=== PATIENT | male | born 1960 | race African-American/Black ===

== ENCOUNTER 2023-07-14 18:02 | Emergency (ER) | payer SELFPAY | END 2023-07-14 19:25 | disposition home or self-care (01) | LOC: NAV ERS 18:02 | DX: F10.129 Alcohol abuse with intoxication, unspecified (principal) | CPT/HCPCS: 99284 ==

== ENCOUNTER 2024-08-11 08:00 | Outpatient (CLI) | payer OTHER | END 2024-08-11 08:01 | disposition home or self-care (01) | LOC: NAV RAD 08:00 | PROVIDERS: ATTEND Student in an Organized Health Care Education/Training Program | DX: M51.16 Intervertebral disc disorders with radiculopathy, lumbar region (principal); M47.26 Other spondylosis with radiculopathy, lumbar region | CPT/HCPCS: 72100 ==